=== PATIENT | female | born 1980 | race Caucasian/White ===

== ENCOUNTER 2017-09-05 06:37 | Day surgery (SDC) | payer OTHER ==
--- NOTE | 2017-09-04 20:18 | PREOPHP ---
Date of Admission: 08/29/2017 History Of Present Illness: This patient presented to my office with a chief complaint of a painful right big toe joint present for years with shoe gear. Pain is moderate in nature, throbbing in quality worse with activity, improved by rest. The patient has modified her shoe gear, taken [id number] anti- inflammatories, all to no avail and requests surgical management. Medical History: Skin condition of rosacea. Medications: Flonase. Allergy Medication: Allergies are to latex and natural rubber. Surgical History: Tubal ligation. Social History: Patient denies smoking. Admits to social alcohol use. No IV drug use. Family History: Positive for arthritis in her mother and thyroid disease in her paternal grandmother. Physical Examination: Vital Signs: The patient's weight is 225 pounds, height 5 feet 3 inches. General Appearance: The patient is healthy, well developed, well nourished, well oriented x3. Vascular: Evaluation reveals dorsalis pedis and posterior tibial pulses to be 4 /4 bilaterally. Capillary refill time is less than 3 seconds. Temperature gradient is within normal limits. There is no edema or claudication complaint bilaterally. Musculoskeletal: Evaluation reveals a semiflexible cavus foot type with increase in varus at subtalar joint and in the forefoot. There is equinus noted bilaterally to negative 10 degrees. Muscle testing, knee assessment, ankle assessment are all within normal limits with lower extremity muscle strength and range of motion equal and symmetrical bilaterally. There are no soft tissue masses noted bilaterally. Skin: Evaluation reveals no rash, ulcer, tumor or contracture other than diffuse callus present plantarly 1 to 5 MPJs. Neurologic: Evaluation reveals deep tendon reflexes of the patella and Achilles to be 5/5 bilaterally. Vibratory and sharp dull sensation are within normal limits. Imaging Data: X-ray evaluation of the right foot reveals no fracture, tumor, or degenerative joint disease. Bones are well mineralized. There was a lateral deviation of the hallux and sesamoids with an increase in the intermetatarsal angle of the first metatarsal with angle of 16 degrees for intermetatarsal angle and a hallux abductus angle of 33 degrees. Diagnosis: Hallux valgus deformity right foot, pain in the right big toe joint and congenital metatarsus primus varus right foot. Based on the patient's symptoms, structural deformity and lack of response to conservative care, patient is recommended a bunionectomy with first metatarsal osteotomy of the right foot. The patient understands risks, benefits, and alternatives of the above mentioned procedure including but not limited to the risk of pain, swelling, numbness, stiffness, infection, nonhealing of skin or bone, recurrence of the deformity and the risk of DVT and PE have been explained to the patient as well as its signs and symptoms. The patient's lab work is within normal limits and medical H and P will be completed by Anesthesia. The patient is scheduled for surgery at [facility] on September 05, 2017. PAUOL/FLORES Voice ID: [id number] MTDD
[2017-09-05] MEDS ORDERED: Ringers Lactate 1,000 ML IV ONE (06:52)
[2017-09-05] MEDS ORDERED: CEFAZOLIN/SWI 1gm 1 GM/10 ML SYR ONE (06:52)
[2017-09-05 07:02] LABS: Specific Gravity 1.015 (1.005-1.030)
[2017-09-05] MEDS ORDERED: LIDOCAINE 1% 20 ML MDV ONE (07:09)
[2017-09-05] MEDS ORDERED: BUPIVACAINE 0.5% Inj,MDV 50 mL VIAL ONE (07:09)
[2017-09-05] MEDS ORDERED: PROPOFOL 200 MG/20 ML VIAL IV ONE (07:09)
[2017-09-05] MEDS ORDERED: FENTANYL CITR 100 MCG/2 ML ONE ×2 (07:10→08:05)
[2017-09-05] MEDS ORDERED: LIDOCAINE 2% MPF 5 ML VIAL ONE (07:10)
[2017-09-05] MEDS ORDERED: ONDANSETRON HCL 40 MG/20 ML VIAL ONE (07:12)
[2017-09-05] MEDS ORDERED: MIDAZOLAM HCL 2 MG/2 ML INJ ONE (07:12)
[2017-09-05] MEDS ORDERED: KETOROLAC 30 MG/ML INJ ONE (09:17)
[2017-09-05] MEDS ORDERED: ONDANSETRON 4 MG/2 ML VIAL ONE (09:22)
[2017-09-05] MEDS: MEPERIDINE HCL 25 MG/0.5 ML ONE ×2 (09:22→09:27)
--- NOTE | 2017-09-05 10:09 | RAD REPORT ---
EXAM DESCRIPTION: RAD - Foot Right 3 View - 09/05/2017 9:36 am CLINICAL HISTORY: Foot pain, history of bunionectomy first metatarsal, post surgery assessment COMPARISON: None. FINDINGS: Postsurgical changes noted to the medial margin first metatarsal head. Postsurgical obliqu e lucency present at the shaft - head junction. No suspicious or unexpected alignment or positioning abnormality. Postsurgical soft tissue edema as expected. No first toe abnormality. The second-fifth metatarsals and phalanges show no suspicious findings. No midfoot abnormality. IMPRESSION: Postsurgical changes to the first metatarsal as detailed. No suspicious or unexpected fi nding.
--- NOTE | 2017-09-05 20:30 | DS ---
Date of Discharge: 09/05/2017 Date Of Surgery: 09/05/2017. Surgeon: Tristian Rhodes DPM. Preoperative Diagnosis: Hallux valgus deformity, right foot. Postoperative Diagnosis: Hallux valgus deformity, right foot. Procedure: Plantarflexory Red bunionectomy with union pin fixation, right foot. Anesthesia: General. Hospital Course: The patient tolerated the procedure and anesthesia well and was sent to recovery ro in satisfactory condition. It should be noted that 10 cc of 0.5% Marcaine plain were injected bef ore bandaging was applied for prolonged anesthesia. The patient may resume normal diet and ambulate in a postop shoe, 4 point gait with crutches. The patient will be followed in my office for postoper ative care in 1 week. Postop instructions in written form as well as emergency phone number were giv en. PAULO/FLORES Voice ID: [id number] Report ID: [id number]
--- NOTE | 2017-09-05 20:30 | OP ---
Date of Procedure: 09/05/2017 Surgeon: Tristian Rhodes DPM Preoperative Diagnosis: Hallux valgus deformity, right foot. Postoperative Diagnosis: Hallux valgus deformity, right foot. Procedure: Plantarflexory Red bunionectomy with union pin fixation, 1.3 mm, right foot. Anesthesia: General. Procedure In Detail: The patient was brought into the operating room, placed on the operating table in supine position. The patient was then prepped and draped in the usual sterile manner and the righ t extremity was elevated to 60 degrees and Esmarch bandage was applied. Pneumatic ankle tourniquet w as elevated to 250 mmHg. The Esmarch was removed. Attention was then directed to the first MPJ wher e a 5 cm dorsal linear incision was made. The incision was deepened via sharp and blunt dissection. All neurological structures were avoided. All bleeders were clamped and bovied. An inverted L inci shine was made in the capsule of the first MPJ and dissected free from its bony attachments. The medi al eminence was brought into view and resected utilizing an oscillating saw. The first interspace wa s then approached and a lateral capsulotomy, adductor tenotomy and PHP tenotomy was performed. The t oe seemed to be in a more rectus fashion and not as track bound. The knee was then bent and the foot was repositioned and an osteotomy was created in the head of the first metatarsal with the apex dist ally and arms proximal. The cuts were angulated so as to plantar flex the first metatarsal head as i t was going to slide laterally. Cuts were made from medial to lateral. The capital fragment was the n shifted laterally and impacted medially upon the shaft of the first metatarsal. The remaining gregory ence was removed utilizing the oscillating saw. Two union pins were used to fixate the head on the s haft of the first metatarsal with simulated weightbearing. The first ray was seen to be in rectus al ignment with range of motion to 80 degrees. Any rough edges were smoothed utilizing a rasp. The are a was flushed with copious amounts of sterile saline. With the toe held in a corrected position, a m edial capsulorrhaphy was then performed and capsular tissue was reapproximated utilizing 2-0 Vicryl s uture. Again with simulated weightbearing first ray was seen to be in good rectus alignment. The ar ea was then flushed and the skin was reapproximated utilizing 4-0 Prolene horizontal mattress suture. The foot was dressed with Adaptic, dry sterile gauze, dry sterile Samantha, Kerlix, cold therapy pad, Db bandaging. Pneumatic ankle tourniquet was deflated and capillary return was seen to be instantan eous to all digits. The patient was transferred to recovery in satisfactory condition. PAULO/FLORES Voice ID: [id number] Report ID: [id number]
== END 2017-09-05 11:35 | disposition home or self-care (01) ==
LOC: OR 06:37
PROVIDERS: ATTEND Podiatrist
PROC: 0QSN04Z Reposition Right Metatarsal with Internal Fixation Device, Open Approach (ICD-10-PCS; principal; 2017-09-05 07:30)
DX: M20.31 Hallux varus (acquired), right foot (principal)
CPT/HCPCS: 81025; 97163; J0690; J2175; J2250; J2405; J3010

== ENCOUNTER 2018-07-03 06:31 | Day surgery (SDC) | payer OTHER ==
--- NOTE | 2018-07-02 20:57 | PREOPHP ---
Date of Admission: 06/26/2018 History Of Present Illness: This patient presented to my office with a chief complaint of a painful big toe joint, present on the left foot, present for years. The patient has changed her shoe gear, a ll to no avail, and requests surgical management. The patient has previously had her right bunion robb rgery last year. Current painful bunion on the left foot, it is throbbing in nature, moderate in sev erity, present for many months, worse with activity, improved by rest. Current Medical History: History of rosacea on the skin. Past Surgical History: Includes tubal ligation and prior bunion correction to the right foot. Medications: Include vitamin B12, B complex, niacin, and Flonase. Allergies: ARE TO LATEX, RUBBER. Social History: The patient denies smoking or recreational drug use. Admits to social alcohol consu mption. Family History: Positive for arthritis in her mother and thyroid disease in her paternal grandmother . Physical Examination: Vital Signs: Weight is 225 pounds, height 5 feet 3 inches. General: The patient is healthy, well developed, well nourished, well oriented x3. Vascular: Evaluation reveals dorsalis pedis and posterior tibial pulses to be 4/4 bilaterally. Capi llary refill time is less than 3 seconds to all toes. Temperature of the foot and leg is normal. No claudication complaint or varicosities noted bilaterally. Musculoskeletal: Evaluation reveals semiflexible cavus foot type bilaterally with increase in subtal ar joint. Varus position bilaterally and forefoot supinatus position bilaterally. There is a medial eminence of the first metatarsal head with range of motion 60 degrees, not track bound on the left f oot. Hallux valgus is noted on the left foot with equinus of -10 bilaterally per goniometer measurem ent. Muscle testing of the lower extremity reveals equal and symmetrical bilaterally. Knee and ankl e assessment within normal limits. There is no subcutaneous soft tissue masses noted bilaterally. Skin: Examination of the skin reveals no rash, ulcer, tumor, or contracture on the feet bilaterally. Neurologic: Evaluation reveals deep tendon reflexes of patella and Achilles to be 5/5 bilaterally. Vibratory and sharp dull sensation within normal limits. Sensory testing reveals no abnormal loss of sensation. Imaging: X-ray evaluation of the left foot reveals no fracture, tumor, or degenerative joint disease . Bones are well mineralized. First metatarsal angle is within normal limits on lateral view. Less er metatarsals are well aligned. There is a lateral deviation of the hallux and sesamoids with incre ase in the intermetatarsal angle of 15 degrees and a hallux abductus angle of 25 degrees. There is a small cyst medially, unchanged from prior views, present on the medial first metatarsal head on the left foot. Plan: Recommended treatment is for a bunionectomy with first metatarsal osteotomy and fixation on th e left foot. The patient understands risks, benefits, alternatives of the above-mentioned procedure including, but not limited to, use of the postop shoe for at least 4 weeks[address] while patient is on narcotic medication. The patient requests surgical management of the problem due to lack of i mprovement with conservative treatment and modifying her shoe gear. The patient understands the risk s, benefits, and alternatives of the above-mentioned procedure including, but not limited to the risk of pain, swelling, numbness, stiffness, infection, nonhealing of skin or bone, recurrence of the def ormity. Risk of DVT and PE have been explained to the patient as well as the signs and symptoms. La b workup has been ordered and labs are within normal limits, so will be sent to preop. Medical H and P will be completed by Anesthesia. The patient is scheduled for surgery on the left foot on June 182018, at [facility]. LINDA Voice ID: [id number]
--- OUTSIDE RECORDS SUMMARY | 2018-07-03 06:33 | XMS REPORT ---
:1980 [facility] Address [address] [place] [address] Dr. Galaviz [address] [place] [id number] Care Team Providers Name Role Phone Unavailable Unavailable Unavailable Problems This patient has no known problems. Allergies, Adverse Reactions, Alerts This patient has no known allergies or adverse reactions. Medications This patient has no known medications.
[2018-07-03 06:53] LABS: Specific Gravity 1.015 (1.005-1.030)
[2018-07-03] MEDS ORDERED: CEFAZOLIN/SWI 1gm 1 GM/10 ML SYR ONE (06:53)
[2018-07-03] MEDS ORDERED: Ringers Lactate 1,000 ML IV ONE (06:53)
[2018-07-03] MEDS ORDERED: DEXAMETHASONE 4 MG/ML VIAL ONE (07:22)
[2018-07-03] MEDS ORDERED: LIDOCAINE 1% MPF 30 ML VIAL ONE (07:22)
[2018-07-03] MEDS ORDERED: BUPIVACAINE 0.5% PF 10 ML VIAL ONE (07:22)
[2018-07-03] MEDS ORDERED: MIDAZOLAM HCL 2 MG/2 ML INJ ONE (07:27)
[2018-07-03] MEDS ORDERED: PROPOFOL 200 MG/20 ML VIAL IV ONE ×4 (07:32→08:24)
[2018-07-03] MEDS ORDERED: LIDOCAINE 2% MPF 5 ML VIAL ONE (07:33)
[2018-07-03] MEDS ORDERED: FENTANYL CITR 100 MCG/2 ML ONE (08:07)
--- NOTE | 2018-07-03 10:43 | RAD REPORT ---
EXAM DESCRIPTION: RAD - Foot Left 3 View - 07/03/2018 9:53 am CLINICAL HISTORY: S/P Bunionectomy COMPARISON: No comparisons FINDINGS: Postsurgical changes of recent bunionectomy noted. Lucency along the lateral dorsal aspect of the first metatarsal head is likely a nondisplaced fracture. Small calcaneal spurs are present.
--- NOTE | 2018-07-03 19:50 | OP ---
Date of Procedure: 07/03/2018 Surgeon: Tristian Rhodes DPM Preoperative Diagnosis: Hallux valgus deformity, left foot. Postoperative Diagnosis: Hallux valgus deformity, left foot. Procedure: Red bunionectomy with SonicPin fixation, left foot. Anesthesia: Via local infiltration. Procedure In Detail: The patient was brought into the operating room, placed on the operating table in supine position. Once adequate IV sedation was obtained, the patient was injected with a total of 10 cc of 0.5% Marcaine plain. The patient is prepped and draped in usual sterile manner and the lef t extremity was elevated to 60 degrees. An Esmarch bandage was applied to exsanguinate the blood sup ply. Pneumatic ankle tourniquet was elevated to 250 mmHg and the Esmarch was removed. Attention was then directed to the first MPJ of the left foot where a 5 cm dorsal linear incision was made. Additional 5 cc of 1% xylocaine plain was added for additional anesthesia. The incision was deepened via sharp and blunt dissection down to the level of capsule. All neurologic structures were avoided. All bleeders were clamped and bovied. An inverted L incision was made in the capsule firs t MPJ and dissected free from its bony attachments. The medial eminence was brought into view and re sected utilizing an oscillating saw. The medial aspect of the first metatarsal head was inspected. No cystic changes were seen only in the piece that was removed. The first interspace was then approa ched and a lateral capsulotomy, adductor tenotomy and EHB tenotomy was performed. The foot was then repositioned with the knee bent and an osteotomy was created in the head of the first metatarsal with the apex distal and the arms proximal in a v-shaped fashion. Osteotomy was created from medial to l ateral utilizing the oscillating saw. This was shifted laterally and impacted medially upon the shaf t of the first metatarsal and the remaining eminence was removed utilizing the oscillating saw. Util izing the SonicPin system from [employer], a K-wire was drilled in the head of the first metatarsal fixa ting upon the shaft. The SonicPin was then placed and pedal was depressed. The pin was delivered do wn to the Hilt and 5 seconds were passed for a cooling and the pin was removed from the device. Exce llent fixation and stability were achieved. Any rough edges were smoothed utilizing a rasp. The are a was flushed with copious amounts of sterile saline. Medial capsulorrhaphy was then performed with the toe held in corrected position. The capsular tissue was reapproximated utilizing 2-0 Vicryl sutu re. Skin was reapproximated utilizing 4-0 Prolene horizontal mattress suture. Toes was seemed to be in excellent rectus alignment with good range of motion that was rectus. The patient was sent to [facility] in satisfactory condition. LINDA Voice ID: [id number] Report ID: [id number]
--- NOTE | 2018-07-03 19:55 | DS ---
Date of Discharge: 07/03/2018 Surgeon: Tristian Rhodes DPM. Preoperative Diagnosis: Hallux valgus deformity, left foot. Postoperative Diagnosis: Hallux valgus deformity, left foot. Procedure: Red bunionectomy with SonicPin fixation, left foot. Hospital Course: The patient tolerated the procedure and anesthesia well, was discharged to recovery in satisfactory conditions and will be discharged home from same-day surgery per anesthesia guidelin thom. The patient has been given written postop instructions with emergency phone number. The patient will follow in my office for postoperative care in 1 week. LINDA Voice ID: [id number] Report ID: [id number]
== END 2018-07-03 10:03 | disposition home or self-care (01) ==
LOC: OR 06:31
PROVIDERS: ATTEND Podiatrist
PROC: 0QSP04Z Reposition Left Metatarsal with Internal Fixation Device, Open Approach (ICD-10-PCS; principal; 2018-07-03 07:30)
DX: M20.12 Hallux valgus (acquired), left foot (principal); M77.32 Calcaneal spur, left foot; G47.33 Obstructive sleep apnea (adult) (pediatric)
CPT/HCPCS: 81025; J0690; J2250; J2704; J3010